=== PATIENT | female | born 1970 | race Two or more races ===

== ENCOUNTER 2022-04-04 06:05 | Emergency (ER) | payer MEDICAID ==
[~2022-04-04] VITALS: Ht 162.6 cm; Wt 85.0 kg
[2022-04-04] MEDS ORDERED: ACETAMINOPHEN 325MG TABLET PO ONE (06:30)
[2022-04-04] MEDS ORDERED: TOPUD PO (08:20)
[2022-04-04 08:51] VITALS: BP 102/60
== END 2022-04-04 08:53 | disposition home or self-care (01) ==
LOC: ER 06:29
DX: S60.211A Contusion of right wrist, initial encounter (principal); S20.212A Contusion of left front wall of thorax, initial encounter; E11.9 Type 2 diabetes mellitus without complications; Y08.89XA Assault by other specified means, initial encounter; Y93.9 Activity, unspecified; Y92.9 Unspecified place or not applicable; Z02.79 Encounter for issue of other medical certificate
CPT/HCPCS: 71101; 73110; 99284